=== PATIENT | female | born 1955 | race Caucasian/White ===

== ENCOUNTER 2020-03-26 15:41 | Outpatient (CLI) | payer MEDICARE ==
--- NOTE | 2020-03-26 16:36 | XRAY Report ---
PROCEDURE: Finger(s) LT INDICATIONS: LEFT FINGER PAIN TECHNIQUE: AP hand, 3 views of the third finger(s) acquired. COMPARISON: None FINDINGS: Bones: No fractures or dislocations. No suspicious bony lesions. Note is made of mild narrowing of the distal inner phalangeal joint consistent with degenerative osteoarthritis but no erosive arthrit is is found. Soft tissues: No suspicious soft tissue calcifications. IMPRESSION: Osteoarthritis at the distal third interphalangeal joint without trauma. Mild soft tissue swelling al so may be present over the middle interphalangeal joint, potentially a manifestation of trauma or inf lammatory change related to mild osteoarthritis in that area also. Reviewed by: Daniel Mrach MD on 03/26/2020 4:35 PM PST Approved by: Daniel March MD on 03/26/2020 4:35 PM PST Station ID: [id number]
== END 2020-03-26 15:42 | disposition home or self-care (01) ==
LOC: DI.S 15:41
PROVIDERS: ATTEND Physician Assistant
DX: M19.042 Primary osteoarthritis, left hand (principal)